=== PATIENT | male | born 1960 | race African-American/Black ===

== ENCOUNTER 2023-11-14 19:26 | Inpatient (IN) | payer MEDICAID, OTHER ==
[~2023-11-14] VITALS: Ht 172.7 cm; Wt 87.5 kg
[2023-11-14] MEDS: SODIUM CHLORIDE 0.9% 1000ML BAG (SEPSIS BOLUS) IV ONE (20:58)
[2023-11-14] MEDS: VANCOMYCIN 1G PREMIX 200 ML IV ONE (20:58)
[2023-11-14] MEDS: PIPERACILLIN/TAZO 3.375G/50ML 50 ML IV ONE (20:58)
[2023-11-14 21:25] LABS: BASOPHILS % 0.2 % (0.0-2.0); DIFFERENTIAL COMMENT 0; EOSINOPHILS % 0.3 % (0.0-5.0); HEMATOCRIT. 22.2 % (42.0-52.0); LYMPHOCYTES % 10.5 % (20.0-50.0); MEAN CORPUSCULAR HEMOGLOBIN 23.8 pg (28.0-32.0); MEAN CORPUSCULAR HGB CONC 30.8 g/dL (31.0-37.0); MEAN CORPUSCULAR VOLUME 77.5 fL (80.0-94.0); MEAN PLATELET VOLUME 7.1 fl (7.4-10.4); MONOCYTES % 9.1 % (2.0-8.0); NEUTROPHILS % 79.9 % (40.0-76.0); PLATELET 506 x1000/uL (130-400); RED BLOOD CELL COUNT 2.86 mill/uL (4.7-6.1); RED CELL DISTRIBUTION WIDTH 20.4 % (11.6-14.6); WHITE BLOOD COUNT 14.2 x1000/uL (4.5-11.0)
[2023-11-14 21:28] LABS: CHLORIDE 101 mEq/L (98-107); POTASSIUM 4.6 mEq/L (3.5-5.1); SODIUM 129 mEq/L (136-145)
[2023-11-14 21:29] LABS: CARBON DIOXIDE 20 mEq/L (21-32)
[2023-11-14 21:30] LABS: CALCIUM 9.5 mg/dL (8.7-10.4)
[2023-11-14 21:33] LABS: HEMOGLOBIN. 6.8 g/dL (14.0-18.0)
[2023-11-14 21:35] LABS: CREATININE 1.1 mg/dL (0.6-1.3); GLUCOSE 108 mg/dL (70-105); UREA NITROGEN BLOOD 26 mg/dL (9-23)
[2023-11-14 21:36] LABS: INR 1.9; LACTIC ACID 2.7 mmol/L (0.4-2.0); PROTHROMBIN TIME 20.2 sec (9.6-11.0)
[2023-11-14] MEDS ORDERED: PANTOPRAZOLE SODIUM 40 MG/VIAL IV ONE (22:15)
[2023-11-14] MEDS: PANTOPRAZOLE SODIUM 40 MG/VIAL IV NR (22:53)
[2023-11-15] VITALS (14 sets, daily range): BP systolic 92–111; BP diastolic 53–88; PULSE 85–94; RESP 18–20; TEMP 97.7–98.1
[2023-11-15] MEDS: IOHEXOL-300 100 ML BOTTLE ONE ×2 (00:28→02:23)
[2023-11-15] MEDS ORDERED: ONDANSETRON HCL 4MG/2ML INJ IV PRN (03:15)
[2023-11-15] MEDS ORDERED: SENNOSIDES/DOCUSATE SOD 8.6/50MG TABLET PO PRN (03:15)
[2023-11-15] MEDS ORDERED: IPRATROPIUM/ALBUTEROL 0.5-3(2.5)MG/3ML NEB HHN PRN (03:15)
[2023-11-15] MEDS ORDERED: NALOXONE HCL 0.4MG/ML VIAL IV PRN (03:45)
[2023-11-15] MEDS ORDERED: HYDROCODONE/ACETAMINOPHEN 5/325MG TABLET PO PRN (04:15)
[2023-11-15] MEDS ORDERED: AMLO10TA80 PO (04:22)
[2023-11-15] MEDS ORDERED: LEVO150T8 PO (04:22)
[2023-11-15 04:24] LABS: BASOPHILS % 0.4 % (0.0-2.0); DIFFERENTIAL COMMENT 0; EOSINOPHILS % 0.6 % (0.0-5.0); LYMPHOCYTES % 11.1 % (20.0-50.0); MEAN CORPUSCULAR HGB CONC 29.1 g/dL (31.0-37.0); MEAN CORPUSCULAR VOLUME 82.6 fL (80.0-94.0); MEAN PLATELET VOLUME 7.2 fl (7.4-10.4); MONOCYTES % 8.3 % (2.0-8.0); NEUTROPHILS % 79.6 % (40.0-76.0); PLATELET 352 x1000/uL (130-400); RED CELL DISTRIBUTION WIDTH 20.7 % (11.6-14.6); WHITE BLOOD COUNT 12.4 x1000/uL (4.5-11.0)
[2023-11-15 04:37] LABS: HEMOGLOBIN. 5.5 g/dL (14.0-18.0)
[2023-11-15 04:45] LABS: CREATINE KINASE 216 IU/L (46-171)
[2023-11-15 05:06] LABS: CARBON DIOXIDE 18 mEq/L (21-32); CHLORIDE 107 mEq/L (98-107); POTASSIUM 4.5 mEq/L (3.5-5.1); SODIUM 133 mEq/L (136-145)
[2023-11-15 05:07] LABS: CALCIUM 8.6 mg/dL (8.7-10.4)
[2023-11-15 05:12] LABS: CREATININE 0.9 mg/dL (0.6-1.3); GLUCOSE 111 mg/dL (70-105); TRIGLYCERIDE 88 mg/dL (0-150); UREA NITROGEN BLOOD 20 mg/dL (9-23)
[2023-11-15 05:13] LABS: LDL CHOLESTEROL 44 mg/dL (5-100)
[2023-11-15 05:14] LABS: CHOLESTEROL 75 mg/dL (<200); HDL CHOLESTEROL < 20 mg/dL (>55)
[2023-11-15 05:17] LABS: THYROID STIMULATING HORMONE 1.89 uIU/mL (0.55-4.78)
[2023-11-15] MEDS: DEXT 5%/0.9% NACL 1,000 ML IV SCH (06:15)
[2023-11-15] MEDS: LEVOTHYROXINE SODIUM 150MCG TABLET PO SCH (06:20)
[2023-11-15] MEDS: VANCOMYCIN 750MG PREMIX 150 ML IV SCH (08:00)
[2023-11-15] MEDS ORDERED: PIPERACILLIN/TAZO 3.375G/50ML 50 ML IV SCH (09:00)
[2023-11-15] MEDS: PANTOPRAZOLE SODIUM 40 MG/VIAL IV SCH (13:27)
[2023-11-15] MEDS: PIPERACILLIN/TAZO 3.375G/50ML IV SCH (13:27)
[2023-11-15 18:50] LABS: HEMATOCRIT 25.2 % (42.0-52.0); HEMOGLOBIN 7.8 g/dL (14.0-18.0); MEAN CORPUSCULAR HEMOGLOBIN 24.5 pg (28.0-32.0); MEAN CORPUSCULAR HGB CONC 30.8 g/dL (31.0-37.0); MEAN CORPUSCULAR VOLUME 79.6 fL (80.0-94.0); PLATELET 466 x1000/uL (130-400); RED BLOOD CELL COUNT 3.16 mill/uL (4.7-6.1); RED CELL DISTRIBUTION WIDTH 20.1 % (11.6-14.6); WHITE BLOOD COUNT 11.3 x1000/uL (4.5-11.0)
[2023-11-15 19:04] LABS: URIC ACID 5.9 mg/dL (3.7-9.2)
[2023-11-15 19:07] LABS: PHOSPHORUS 3.3 mg/dL (2.5-4.9); TROPONIN I HIGH SENSITIVITY 6 ng/L (3.0-53)
[2023-11-15] MEDS: VANCOMYCIN 1GM/200ML PMX (BAXTER) IV SCH (21:52)
[2023-11-16] VITALS: BP 91/52; PULSE 91; RESP 18; TEMP 98.2
[2023-11-16 04:00] VITALS: BP 92/54; PULSE 87; RESP 18; TEMP 98.4
[2023-11-16 06:51] LABS: CARBON DIOXIDE 18 mEq/L (21-32); CHLORIDE 109 mEq/L (98-107); POTASSIUM 4.1 mEq/L (3.5-5.1); SODIUM 135 mEq/L (136-145)
[2023-11-16 06:53] LABS: CALCIUM 9.3 mg/dL (8.7-10.4)
[2023-11-16 06:57] LABS: CREATININE 0.7 mg/dL (0.6-1.3); GLUCOSE 117 mg/dL (70-105)
[2023-11-16 06:58] LABS: UREA NITROGEN BLOOD 16 mg/dL (9-23)
[2023-11-16 08:00] VITALS: BP 99/59; PULSE 92; RESP 20; TEMP 97; TEMP 97.6
[2023-11-16] MEDS: LIDOCAINE HCL/EPINEPHRINE 1%-EPI 1:100,000 20 ML VIAL INFIL NR (10:00)
[2023-11-16 12:00] VITALS: BP 100/79; PULSE 90; RESP 20; TEMP 97.4
[2023-11-16] MEDS ORDERED: LIDOCAINE HCL 1% 10 MG/ML 10ML VIAL ONE (13:28)
[2023-11-16 16:00] VITALS: BP 118/65; PULSE 87; RESP 20; TEMP 98.1
[2023-11-16 17:42] LABS: BASOPHILS % 0.3 % (0.0-2.0); DIFFERENTIAL COMMENT 0; EOSINOPHILS % 1.3 % (0.0-5.0); HEMATOCRIT. 22.4 % (42.0-52.0); HEMOGLOBIN. 7.1 g/dL (14.0-18.0); LYMPHOCYTES % 10.4 % (20.0-50.0); MEAN CORPUSCULAR HEMOGLOBIN 25.1 pg (28.0-32.0); MEAN CORPUSCULAR HGB CONC 31.8 g/dL (31.0-37.0); MONOCYTES % 9.7 % (2.0-8.0); NEUTROPHILS % 78.3 % (40.0-76.0); PLATELET 410 x1000/uL (130-400); RED BLOOD CELL COUNT 2.84 mill/uL (4.7-6.1); RED CELL DISTRIBUTION WIDTH 20.1 % (11.6-14.6); WHITE BLOOD COUNT 7.9 x1000/uL (4.5-11.0)
[2023-11-16] MEDS: SODIUM HYPOCHLORITE 0.125% 473ML SOLUTION TOP SCH (18:00)
[2023-11-16 18:25] LABS: ERYTHROCYTE SEDIMENTATION RATE 112 mm/hr (0-20)
[2023-11-16 20:00] VITALS: BP 96/54; PULSE 92; RESP 18; TEMP 97.5
[2023-11-16] MEDS: VANCOMYCIN 1.25GM PMX (XELLIA) 250 ML IV SCH (20:31)
[2023-11-17] VITALS: BP 136/72; PULSE 86; RESP 18; TEMP 97.6
[2023-11-17 04:00] VITALS: BP 132/72; PULSE 83; RESP 18; TEMP 97.7
[2023-11-17 08:00] VITALS: BP 120/68; PULSE 85; RESP 18; TEMP 97.1
[2023-11-17 12:00] VITALS: BP 118/79; PULSE 80; RESP 20; TEMP 97.9
[2023-11-17 16:00] VITALS: BP 96/62; PULSE 82; RESP 20; TEMP 98.1
[2023-11-17] MEDS ORDERED: SULF1TAB48 MT (17:07)
[2023-11-17 20:00] VITALS: BP 116/60; PULSE 74; RESP 20; TEMP 97.7
[2023-11-18] VITALS: BP 100/52; PULSE 81; RESP 19; TEMP 97.9
[2023-11-18 04:00] VITALS: BP 105/59; PULSE 79; RESP 20; TEMP 97.5
[2023-11-18 06:51] LABS: CARBON DIOXIDE 18 mEq/L (21-32); CHLORIDE 110 mEq/L (98-107); POTASSIUM 4.4 mEq/L (3.5-5.1); SODIUM 137 mEq/L (136-145)
[2023-11-18 06:52] LABS: CALCIUM 9.6 mg/dL (8.7-10.4)
[2023-11-18 06:57] LABS: CREATININE 0.7 mg/dL (0.6-1.3); GLUCOSE 100 mg/dL (70-105); UREA NITROGEN BLOOD 13 mg/dL (9-23)
[2023-11-18 08:00] VITALS: BP 138/69; PULSE 98; RESP 20; TEMP 98.4
[2023-11-18 12:00] VITALS: BP 106/56; PULSE 83; RESP 20; TEMP 98.1
[2023-11-18 16:00] VITALS: BP 110/74; PULSE 98; RESP 20; TEMP 98.4
[2023-11-18 20:00] VITALS: BP 118/64; PULSE 87; RESP 19; TEMP 97.9
[2023-11-19] VITALS: BP 106/59; PULSE 88; RESP 19; TEMP 97.5
[2023-11-19 04:00] VITALS: BP 107/61; PULSE 81; RESP 20; TEMP 97.9
[2023-11-19] MEDS: VANCOMYCIN 1.25GM PMX (XELLIA) 250 ML IV SCH (05:12)
[2023-11-19 06:42] LABS: CARBON DIOXIDE 20 mEq/L (21-32); CHLORIDE 111 mEq/L (98-107); POTASSIUM 4.4 mEq/L (3.5-5.1); SODIUM 138 mEq/L (136-145)
[2023-11-19 06:43] LABS: BASOPHILS % 0.9 % (0.0-2.0); DIFFERENTIAL COMMENT 0; EOSINOPHILS % 2.6 % (0.0-5.0); HEMATOCRIT. 22.5 % (42.0-52.0); LYMPHOCYTES % 19.7 % (20.0-50.0); MEAN CORPUSCULAR HEMOGLOBIN 24.9 pg (28.0-32.0); MEAN CORPUSCULAR HGB CONC 31.3 g/dL (31.0-37.0); MEAN CORPUSCULAR VOLUME 79.5 fL (80.0-94.0); MEAN PLATELET VOLUME 7.1 fl (7.4-10.4); MONOCYTES % 10.4 % (2.0-8.0); NEUTROPHILS % 66.4 % (40.0-76.0); PLATELET 376 x1000/uL (130-400); RED BLOOD CELL COUNT 2.83 mill/uL (4.7-6.1); WHITE BLOOD COUNT 5.8 x1000/uL (4.5-11.0)
[2023-11-19 06:48] LABS: CREATININE 0.6 mg/dL (0.6-1.3); GLUCOSE 102 mg/dL (70-105); UREA NITROGEN BLOOD 12 mg/dL (9-23)
[2023-11-19] MEDS ORDERED: LIDOCAINE HCL/EPINEPHRINE 1%-EPI 1:100,000 20 ML VIAL INFIL NR (08:30)
[2023-11-19 08:39] VITALS: BP 103/59; PULSE 83; RESP 16; TEMP 98.2
[2023-11-19] MEDS: MORPHINE SULFATE 2 MG/ML INJ (NOT FOR IM USE) IV PRN (08:43)
[2023-11-19] MEDS ORDERED: FERR325T23 MT (09:52)
[2023-11-19 12:32] VITALS: BP 100/48; PULSE 96; RESP 16; TEMP 98.1
[2023-11-19 16:04] VITALS: BP 166/64; PULSE 94; RESP 17; TEMP 98
[2023-11-19] MEDS ORDERED: CEFEPIME 2GM IN DEXT 5% 100ML IV SCH (16:15)
[2023-11-19] MEDS: CEFEPIME 2GM/100ML 100 ML IV SCH (17:41)
[2023-11-19 20:00] VITALS: BP 135/69; PULSE 99; RESP 20; TEMP 97.8
[2023-11-20] VITALS (7 sets, daily range): BP systolic 102–138; BP diastolic 52–91; PULSE 74–95; RESP 17–20; TEMP 97.2–98.1; O2SAT 96
[2023-11-20 13:29] LABS: BASOPHILS % 0.8 % (0.0-2.0); EOSINOPHILS % 2.7 % (0.0-5.0); HEMATOCRIT. 24.4 % (42.0-52.0); HEMOGLOBIN. 7.5 g/dL (14.0-18.0); LYMPHOCYTES % 14.2 % (20.0-50.0); MEAN CORPUSCULAR HEMOGLOBIN 25.1 pg (28.0-32.0); MEAN CORPUSCULAR HGB CONC 30.7 g/dL (31.0-37.0); MEAN CORPUSCULAR VOLUME 81.6 fL (80.0-94.0); MEAN PLATELET VOLUME 7.3 fl (7.4-10.4); MONOCYTES % 7.6 % (2.0-8.0); NEUTROPHILS % 74.7 % (40.0-76.0); PLATELET 401 x1000/uL (130-400); RED BLOOD CELL COUNT 2.99 mill/uL (4.7-6.1); RED CELL DISTRIBUTION WIDTH 20.7 % (11.6-14.6); WHITE BLOOD COUNT 6.6 x1000/uL (4.5-11.0)
[2023-11-20 13:36] LABS: CHLORIDE 110 mEq/L (98-107); POTASSIUM 4.1 mEq/L (3.5-5.1); SODIUM 137 mEq/L (136-145)
[2023-11-20 13:37] LABS: CARBON DIOXIDE 20 mEq/L (21-32)
[2023-11-20 13:38] LABS: CALCIUM 10.4 mg/dL (8.7-10.4)
[2023-11-20 13:42] LABS: CREATININE 0.6 mg/dL (0.6-1.3)
[2023-11-20 13:43] LABS: GLUCOSE 138 mg/dL (70-105); UREA NITROGEN BLOOD 10 mg/dL (9-23)
[2023-11-20] MEDS ORDERED: CEFEPIME 2GM/100ML 100 ML IV SCH (16:00)
[2023-11-20] MEDS ORDERED: CEFAZOLIN 2GM/100ML 100 ML IV SCH (22:00)
== END 2023-11-20 20:04 | disposition home health service (06) | DRG 710 ==
LOC: ER 19:26 → 5WST 11-15 01:04 → 7WST 11-15 09:39
PROVIDERS: ADMIT Internal Medicine; ATTEND Internal Medicine
PROC: 30233N1 Transfusion of Nonautologous Red Blood Cells into Peripheral Vein, Percutaneous Approach (ICD-10-PCS; 2023-11-15)
PROC: 0QB20ZZ Excision of Right Pelvic Bone, Open Approach (ICD-10-PCS; principal; 2023-11-16)
PROC: 02HV33Z Insertion of Infusion Device into Superior Vena Cava, Percutaneous Approach (ICD-10-PCS; 2023-11-16)
PROC: B548ZZA Ultrasonography of Superior Vena Cava, Guidance (ICD-10-PCS; 2023-11-16)
PROC: 0KBN0ZZ Excision of Right Hip Muscle, Open Approach (ICD-10-PCS; 2023-11-19)
PROC: 0JBM0ZZ Excision of Left Upper Leg Subcutaneous Tissue and Fascia, Open Approach (ICD-10-PCS; 2023-11-19)
DX: A41.9 Sepsis, unspecified organism (principal); L89.214 Pressure ulcer of right hip, stage 4; C79.51 Secondary malignant neoplasm of bone; L89.314 Pressure ulcer of right buttock, stage 4; D63.8 Anemia in other chronic diseases classified elsewhere; E87.1 Hypo-osmolality and hyponatremia; L89.224 Pressure ulcer of left hip, stage 4; C64.9 Malignant neoplasm of unspecified kidney, except renal pelvis; R32 Unspecified urinary incontinence; S71.122A Laceration with foreign body, left thigh, initial encounter; Z20.822 Contact with and (suspected) exposure to COVID-19; D50.0 Iron deficiency anemia secondary to blood loss (chronic); E03.9 Hypothyroidism, unspecified; I10 Essential (primary) hypertension; R65.20 Severe sepsis without septic shock; W07.XXXA Fall from chair, initial encounter; I45.2 Bifascicular block; Z96.649 Presence of unspecified artificial hip joint; Z85.528 Personal history of other malignant neoplasm of kidney; Z86.711 Personal history of pulmonary embolism; Z90.5 Acquired absence of kidney
CPT/HCPCS: 36415; 36573; 71045; 73521; 73522; 74177; 80048; 80061; 80202; 82040; 82550; 83036; 83605; 83735; 83880; 84100; 84145; 84439; 84443; 84481; 84484; 84550; 85025; 85027; 85379; 85651; 86850; 86900; 86920; 87070; 87077; 87186; 87426; 93005; 93923; 93970; 97162; 99285; C1725; C9113; J0690; J0692; J2270; J2470; J2543; J3370; J3490; J7030; J7042; P9016; Q9967